=== PATIENT | female | born 2000 | race Caucasian/White ===

== ENCOUNTER 2019-04-30 20:58 | Observation (INO) ==
[2019-05-01 00:52] LABS: White Blood Count 9.7 K/mcL (4.3-11.1)
[2019-05-01 00:53] LABS: Basophils % 0.2 %; Eosinophils # 0.1 K/mcL (0.0-0.6); Eosinophils % 0.7 %; Hematocrit 39.9 % (35.3-44.9); Hemoglobin 13.5 g/dL (11.5-15.4); Immature Granulocytes % 0.3 % (0-4); Lymphocytes # 2.6 K/mcL (0.6-4.6); Lymphocytes % 26.6 %; Mean Corpuscular HGB Conc 33.8 g/dL (31.6-35.5); Mean Corpuscular Hemoglobin 28.8 pg (28.0-33.3); Mean Corpuscular Volume 85.3 fL (83.0-100.0); Mean Platelet Volume 10.8 fL (9.4-12.4); Monocytes # 0.7 K/mcL (0.0-1.3); Monocytes % 7.2 %; Neutrophils # 6.3 K/mcL (1.6-8.9); Platelet Count 256 K/mcL (140-400); Red Blood Count 4.68 M/mcL (3.82-4.97); Red Cell Distribution Width 13.2 % (11.5-14.5)
--- NOTE | 2019-05-01 00:58 | Emergency Department Note ---
Disposition Clinical Impression: Passive suicidal ideations Urinary tract infection Qualifiers: Urinary tract infection type: acute cystitis Hematuria presence: without hematuria Qualified Code(s): N30.00 - Acute cystitis without hematuria Disposition: Admitted As Inpatient Condition: Fair Instructions: Suicide Prevention for Children and Adolescents (ED) Reasons to Return/Additional Instructions: Please follow-up with your outpatient psychiatrist for further evaluation and continue with your prescribed medications Should you develop any further thoughts of harming herself or others please seek help immediately in the emergency department If you have thoughts of injury, you can also contact [employer] Suicide Prevention Lifeline, Call , This is available 24 hours everyday Referrals: [facility] [Outside] Forms: ED Satisfaction Letter Time of Disposition: 07:01 General Adult HPI - General Chief complaint: ED Psychiatric Symptoms Stated complaint: SI Time Seen by Provider: 04/30/19 23:38 Source: patient, family Limitations: no limitations Nursing Notes Reviewed: Yes Vital Signs Reviewed: Yes - History of Present Illness HPI Narrative: 18-year-old female with no prior medical history presents emergency Department with complaints of suicidal ideation. The patient states she has had several stressors in her life recently including recent breakup. Today she was making a noose with a piece of rope and while she did not intend to commit suicide she did have thoughts of hurting herself. She did also cut herself superficially approximately one month ago. The patient does take Lexapro for depression. She has had no previous psychiatric inpatient hospitalizations. Patient denies any homicidal ideation. She denies any somatic complaints at this time that she does note intermittent abdominal pain which she is not currently experiencing. The patient denies any alcohol or drug ingestion. Pain Scale: 5 - Related Data Previous Rx's Medication Instructions Recorded Amoxicillin 875 mg PO BID #20 tablet 11/19/15 Benzonatate [Tessalon] 200 mg PO TID PRN #20 capsule 11/19/15 Cetirizine HCl [Zyrtec] 10 mg PO DAILY 4 Days tab.chew 11/19/15 Fluticasone Propionate Nasal 2 spray NS DAILY 7 Days bottle 11/19/15 [Flonase] Allergies Allergy/AdvReac Type Severity Reaction Status Date / Time No Known Allergies Allergy Verified 11/19/15 20:09 Review of Systems: ROS per history of present illness, all other systems reviewed and negative or normal. All systems ED: reviewed and negative except as stated. Review of Systems: As Per HPI Past Medical History - Past Medical History Medical history: Reports: no medical history - Social History Smoking Status: Never smoker Smokeless Tobacco Status: No Alcohol use: Reports: none Drug use: Reports: none Physical Exam General: Conversant. No apparent distress. Follow commands. Appears stated age. Neck: No JVD. Trachea midline. Neck supple. Eyes: PERRL. No scleral icterus. HENT: Normocephalic and atraumatic. Moist mucus membranes. Cardiovascular: Regular rate and rhythm. Normal S1 and S2. No murmurs appreciated. Normal capillary refill. Extremities well perfused with 2+ distal pulses bilaterally. No edema. Pulmonary: Normal and equal breath sounds bilaterally, anteriorly and posteriorly. Not in respiratory distress. Speaks in full sentences. Abdomen: Soft, nondistended, and tontender. No bruits or masses. No guarding. Neuro: Alert and oriented x3. No slurred speech. No focal deficits noted. Skin: No rashes or cuts to noted on visualized skin. Musculoskeletal: No bony abnormalities visualized. Moves all extremities. Psych: Normal mood. Makes appropriate eye contact. Admits to suicidal ideation. Denies plan. Denies homicidal ideation. - General Limitations: no limitations General appearance: alert, in no apparent distress Course - Consultations Consultation #1: Patient has been evaluated by [facility]. Pending their recommendations. Time: 05:09 Consultation #2: [facility] has discussed case with psychiatrist who believes the patient to be stable for discharge. She is to follow up with her psychiatrist as an outpatient. She understands she is to return to the emergency department or seek help should she develop any further thoughts of self-injury. Time: 06:32 Vital Signs Temperature 99.4 F 04/30/19 21:09 Pulse Rate 73 04/30/19 21:09 Respiratory Rate 18 04/30/19 21:09 Blood Pressure 161/103 04/30/19 21:09 O2 Sat by Pulse Oximetry 97 04/30/19 21:09 Temperature 99.4 F 04/30/19 21:09 Pulse Rate 73 04/30/19 21:09 Respiratory Rate 18 04/30/19 21:09 Blood Pressure 161/103 04/30/19 21:09 O2 Sat by Pulse Oximetry 97 04/30/19 21:09 Oxygen Delivery Oxygen Delivery Room Air Medical Decision Making - MDM Narrative Medical decision making narrative: 18-year-old female who presents the emergency department with complaints of passive suicidal ideation. She states she was playing with a rope and made a noose. She has not had any self injury, attempts or true plan for suicide. Patient complains of no somatic complaints at this time. She has never been hospitalized for her depression and she continues on Lexapro as an outpatient. The patient is well-appearing here and denies any ingestion. No somatic complaints. Labs were obtained prior to psychiatric clearance. She does have a urinary tract infection, macrobid 199mg BID ordered to be completed for 5 days total. She was medically cleared and evaluated by [facility] who deemed her stable for discharge home with the patient wishes to admit herself voluntarily for inpatient psychiatric management. Psychiatrist agrees with plan for admission and accepts the patient to their service. Patient agrees with and understands course of treatment plan including plan for admission. All questions answered. - Medical Records Medical records reviewed: Yes I reviewed the patient's medical records. - Lab Data Lab results reviewed: Yes I reviewed the patient's lab results. Result diagrams: 05/01/19 00:02 05/01/19 00:02 Lab Results 04/30/19 04/30/19 04/30/19 Range/Units 21:51 21:51 21:51 WBC (4.3-11.1) K/mcL RBC (3.82-4.97) M/mcL Hgb (11.5-15.4) g/dL Hct (35.3-44.9) % MCV (83.0-100.0) fL MCH (28.0-33.3) pg MCHC (31.6-35.5) g/dL RDW (11.5-14.5) % Plt Count (140-400) K/mcL MPV (9.4-12.4) fL Immature Gran % (0-4) % Seg Neutrophils % % Lymphocytes % % Monocytes % % Eosinophils % % Basophils % % Neutrophils # (1.6-8.9) K/mcL Lymphocytes # (0.6-4.6) K/mcL Monocytes # (0.0-1.3) K/mcL Eosinophils # (0.0-0.6) K/mcL Basophils # (0.0-0.2) K/mcL Sodium (136-145) mEq/L Potassium (3.5-5.1) mEq/L Chloride (98-107) mEq/L Carbon Dioxide (23-29) mEq/L BUN (6-20) mg/dL Creatinine (0.60-1.20) mg/dL Est GFR ( Amer) Est GFR (Non-Af Amer) BUN/Creatinine Ratio (6-26) Glucose (70-105) mg/dL Calculated Osmolality (280-300) Calcium (8.6-10.3) mg/dL Urine Color Yellow (Yellow) Urine Clarity Cloudy A (Clear) Urine pH 6.5 (5.0-8.0) pH Units Ur Specific [place] 1.021 (1.010-1.025) Urine Protein Negative (Neg-Trace) mg/dL Urine Glucose (UA) Normal (Normal) mg/dL Urine Ketones Negative (Negative) mg/dL Urine Blood Moderate H (Negative) Urine Nitrite Negative (Negative) Urine Bilirubin Negative (Negative) Urine Urobilinogen Normal (Normal) mg/dL Ur Leukocyte Esterase Moderate H (Negative) Urine Microscopic RBC 5-15 H (0-3) per hpf Urine Microscopic WBC 15-30 H (0-3) per hpf Ur Squamous Epith Cells Many H (None-Few) per lpf Urine Bacteria Moderate H (None-Few) per hpf Urine Test Negative (Negative) Salicylates (15.0-30.0) mg/dL Urine Opiates Screen Negative (Lmhgtt=293) ng/mL Acetaminophen (10-20) mcg/mL Ur Barbiturates Screen Negative (Efrqmv=005) ng/mL Ur Phencyclidine Scrn Negative (Cutoff=25) ng/mL Ur Amphetamines Screen Negative (Xethsi=9949) ng/mL U Benzodiazepines Scrn Negative (Xphems=254) ng/mL Urine Cocaine Screen Negative (Cutoff= 300) ng/mL U Marijuana (THC) Screen Negative (Cutoff = 50) ng/mL Ur Drug Screen Interp See Below Ethyl Alcohol (Less than 10) mg/dL 05/01/19 05/01/19 Range/Units 00:02 00:02 WBC 9.7 (4.3-11.1) K/mcL RBC 4.68 (3.82-4.97) M/mcL Hgb 13.5 (11.5-15.4) g/dL Hct 39.9 (35.3-44.9) % MCV 85.3 (83.0-100.0) fL MCH 28.8 (28.0-33.3) pg MCHC 33.8 (31.6-35.5) g/dL RDW 13.2 (11.5-14.5) % Plt Count 256 (140-400) K/mcL MPV 10.8 (9.4-12.4) fL Immature Gran % 0.3 (0-4) % Seg Neutrophils % 65.0 % Lymphocytes % 26.6 % Monocytes % 7.2 % Eosinophils % 0.7 % Basophils % 0.2 % Neutrophils # 6.3 (1.6-8.9) K/mcL Lymphocytes # 2.6 (0.6-4.6) K/mcL Monocytes # 0.7 (0.0-1.3) K/mcL Eosinophils # 0.1 (0.0-0.6) K/mcL Basophils # 0.0 (0.0-0.2) K/mcL Sodium 141 (136-145) mEq/L Potassium 3.8 (3.5-5.1) mEq/L Chloride 108 H (98-107) mEq/L Carbon Dioxide 24 (23-29) mEq/L BUN 12 (6-20) mg/dL Creatinine 0.81 (0.60-1.20) mg/dL Est GFR ( Amer) > 60 Est GFR (Non-Af Amer) > 60 BUN/Creatinine Ratio 15 (6-26) Glucose 91 (70-105) mg/dL Calculated Osmolality 291 (280-300) Calcium 9.5 (8.6-10.3) mg/dL Urine Color (Yellow) Urine Clarity (Clear) Urine pH (5.0-8.0) pH Units Ur Specific [place] (1.010-1.025) Urine Protein (Neg-Trace) mg/dL Urine Glucose (UA) (Normal) mg/dL Urine Ketones (Negative) mg/dL Urine Blood (Negative) Urine Nitrite (Negative) Urine Bilirubin (Negative) Urine Urobilinogen (Normal) mg/dL Ur Leukocyte Esterase (Negative) Urine Microscopic RBC (0-3) per hpf Urine Microscopic WBC (0-3) per hpf Ur Squamous Epith Cells (None-Few) per lpf Urine Bacteria (None-Few) per hpf Urine Test (Negative) Salicylates < 2.5 L (15.0-30.0) mg/dL Urine Opiates Screen (Ygtnsw=105) ng/mL Acetaminophen < 10 L (10-20) mcg/mL Ur Barbiturates Screen (Tctsyr=526) ng/mL Ur Phencyclidine Scrn (Cutoff=25) ng/mL Ur Amphetamines Screen (Jajsna=5115) ng/mL U Benzodiazepines Scrn (Aulhlq=629) ng/mL Urine Cocaine Screen (Cutoff= 300) ng/mL U Marijuana (THC) Screen (Cutoff = 50) ng/mL Ur Drug Screen Interp Ethyl Alcohol < 10 (Less than 10) mg/dL
[2019-05-01 01:03] LABS: Acetaminophen < 10 mcg/mL (10-20); BUN/Creatinine Ratio 15 (6-26); Blood Urea Nitrogen 12 mg/dL (6-20); Calcium 9.5 mg/dL (8.6-10.3); Carbon Dioxide 24 mEq/L (23-29); Chloride 108 mEq/L (98-107); Ethanol < 10 mg/dL (Less than 10); Glucose 91 mg/dL (70-105); Osmolality,Calculated 291 (280-300); Potassium 3.8 mEq/L (3.5-5.1); Salicylate < 2.5 mg/dL (15.0-30.0); Sodium 141 mEq/L (136-145); eGFR For African Americans > 60; eGFR For Non-African Americans > 60
[2019-05-01 01:24] LABS: Bilirubin,Urine Negative (Negative); Blood,Urine Moderate (Negative); Clarity,Urine Cloudy (Clear); Color,Urine Yellow (Yellow); Glucose,Urine (UA) Normal (Normal); Ketones,Urine Negative (Negative); Leukocyte Esterase,Urine Moderate (Negative); Nitrite,Urine Negative (Negative); PH,Urine 6.5 pH Units (5.0-8.0); Protein,Urine Negative (Neg-Trace); Specific Gravity,Urine 1.021 (1.010-1.025); Urobilinogen,Urine Normal (Normal)
[2019-05-01 01:26] LABS: Amphetamine Screen,Urine Negative ng/mL (Cutoff=1000); Barbiturate Screen,Urine Negative ng/mL (Cutoff=200); Benzodiazepines Screen,Urine Negative ng/mL (Cutoff=200); Cannabinoid Screen,Urine Negative ng/mL (Cutoff = 50); Cocaine Screen,Urine Negative ng/mL (Cutoff= 300); Opiate Screen,Urine Negative ng/mL (Cutoff=300); Phencyclidine Screen,Urine Negative ng/mL (Cutoff=25)
[2019-05-01 01:27] LABS: Bacteria,Urine Moderate per hpf (None-Few); Squamous Epithelial Cell,Urine Many per lpf (None-Few); WBC,Urine 15-30 per hpf (0-3)
--- NOTE | 2019-05-01 06:40 | Emergency Department Note ---
Disposition Clinical Impression: Passive suicidal ideations Disposition: Home, Self-Care Condition: Fair Instructions: Suicide Prevention for Children and Adolescents (ED) Reasons to Return/Additional Instructions: Please follow-up with your outpatient psychiatrist for further evaluation and continue with your prescribed medications Should you develop any further thoughts of harming herself or others please seek help immediately in the emergency department If you have thoughts of injury, you can also contact [employer] Suicide Prevention Lifeline, Call , This is available 24 hours everyday Referrals: [facility] [Outside] Forms: ED Satisfaction Letter Time of Disposition: 06:30 General Adult HPI - General Chief complaint: ED Psychiatric Symptoms Stated complaint: SI Time Seen by Provider: 04/30/19 23:38 Source: patient, family Limitations: no limitations Nursing Notes Reviewed: Yes Vital Signs Reviewed: Yes - History of Present Illness Pain Scale: 5 - Related Data Previous Rx's Medication Instructions Recorded Amoxicillin 875 mg PO BID #20 tablet 11/19/15 Benzonatate [Tessalon] 200 mg PO TID PRN #20 capsule 11/19/15 Cetirizine HCl [Zyrtec] 10 mg PO DAILY 4 Days tab.chew 11/19/15 Fluticasone Propionate Nasal 2 spray NS DAILY 7 Days bottle 11/19/15 [Flonase] Allergies Allergy/AdvReac Type Severity Reaction Status Date / Time No Known Allergies Allergy Verified 11/19/15 20:09 Past Medical History - Past Medical History Medical history: Reports: no medical history - Social History Smoking Status: Never smoker Smokeless Tobacco Status: No Alcohol use: Reports: none Drug use: Reports: none Physical Exam - General Limitations: no limitations General appearance: alert, in no apparent distress Course Vital Signs Temperature 99.4 F 04/30/19 21:09 Pulse Rate 73 04/30/19 21:09 Respiratory Rate 18 04/30/19 21:09 Blood Pressure 161/103 04/30/19 21:09 O2 Sat by Pulse Oximetry 97 04/30/19 21:09 Temperature 99.4 F 04/30/19 21:09 Pulse Rate 73 04/30/19 21:09 Respiratory Rate 18 04/30/19 21:09 Blood Pressure 161/103 04/30/19 21:09 O2 Sat by Pulse Oximetry 97 04/30/19 21:09 Oxygen Delivery Oxygen Delivery Room Air Medical Decision Making - Lab Data Lab results reviewed: Yes I reviewed the patient's lab results. Result diagrams: 05/01/19 00:02 05/01/19 00:02 Lab Results 04/30/19 04/30/19 04/30/19 Range/Units 21:51 21:51 21:51 WBC (4.3-11.1) K/mcL RBC (3.82-4.97) M/mcL Hgb (11.5-15.4) g/dL Hct (35.3-44.9) % MCV (83.0-100.0) fL MCH (28.0-33.3) pg MCHC (31.6-35.5) g/dL RDW (11.5-14.5) % Plt Count (140-400) K/mcL MPV (9.4-12.4) fL Immature Gran % (0-4) % Seg Neutrophils % % Lymphocytes % % Monocytes % % Eosinophils % % Basophils % % Neutrophils # (1.6-8.9) K/mcL Lymphocytes # (0.6-4.6) K/mcL Monocytes # (0.0-1.3) K/mcL Eosinophils # (0.0-0.6) K/mcL Basophils # (0.0-0.2) K/mcL Sodium (136-145) mEq/L Potassium (3.5-5.1) mEq/L Chloride (98-107) mEq/L Carbon Dioxide (23-29) mEq/L BUN (6-20) mg/dL Creatinine (0.60-1.20) mg/dL Est GFR ( Amer) Est GFR (Non-Af Amer) BUN/Creatinine Ratio (6-26) Glucose (70-105) mg/dL Calculated Osmolality (280-300) Calcium (8.6-10.3) mg/dL Urine Color Yellow (Yellow) Urine Clarity Cloudy A (Clear) Urine pH 6.5 (5.0-8.0) pH Units Ur Specific [place] 1.021 (1.010-1.025) Urine Protein Negative (Neg-Trace) mg/dL Urine Glucose (UA) Normal (Normal) mg/dL Urine Ketones Negative (Negative) mg/dL Urine Blood Moderate H (Negative) Urine Nitrite Negative (Negative) Urine Bilirubin Negative (Negative) Urine Urobilinogen Normal (Normal) mg/dL Ur Leukocyte Esterase Moderate H (Negative) Urine Microscopic RBC 5-15 H (0-3) per hpf Urine Microscopic WBC 15-30 H (0-3) per hpf Ur Squamous Epith Cells Many H (None-Few) per lpf Urine Bacteria Moderate H (None-Few) per hpf Urine Test Negative (Negative) Salicylates (15.0-30.0) mg/dL Urine Opiates Screen Negative (Mbhdyz=580) ng/mL Acetaminophen (10-20) mcg/mL Ur Barbiturates Screen Negative (Tlkmoa=986) ng/mL Ur Phencyclidine Scrn Negative (Cutoff=25) ng/mL Ur Amphetamines Screen Negative (Nladkf=0398) ng/mL U Benzodiazepines Scrn Negative (Snmqiz=423) ng/mL Urine Cocaine Screen Negative (Cutoff= 300) ng/mL U Marijuana (THC) Screen Negative (Cutoff = 50) ng/mL Ur Drug Screen Interp See Below Ethyl Alcohol (Less than 10) mg/dL 05/01/19 05/01/19 Range/Units 00:02 00:02 WBC 9.7 (4.3-11.1) K/mcL RBC 4.68 (3.82-4.97) M/mcL Hgb 13.5 (11.5-15.4) g/dL Hct 39.9 (35.3-44.9) % MCV 85.3 (83.0-100.0) fL MCH 28.8 (28.0-33.3) pg MCHC 33.8 (31.6-35.5) g/dL RDW 13.2 (11.5-14.5) % Plt Count 256 (140-400) K/mcL MPV 10.8 (9.4-12.4) fL Immature Gran % 0.3 (0-4) % Seg Neutrophils % 65.0 % Lymphocytes % 26.6 % Monocytes % 7.2 % Eosinophils % 0.7 % Basophils % 0.2 % Neutrophils # 6.3 (1.6-8.9) K/mcL Lymphocytes # 2.6 (0.6-4.6) K/mcL Monocytes # 0.7 (0.0-1.3) K/mcL Eosinophils # 0.1 (0.0-0.6) K/mcL Basophils # 0.0 (0.0-0.2) K/mcL Sodium 141 (136-145) mEq/L Potassium 3.8 (3.5-5.1) mEq/L Chloride 108 H (98-107) mEq/L Carbon Dioxide 24 (23-29) mEq/L BUN 12 (6-20) mg/dL Creatinine 0.81 (0.60-1.20) mg/dL Est GFR ( Amer) > 60 Est GFR (Non-Af Amer) > 60 BUN/Creatinine Ratio 15 (6-26) Glucose 91 (70-105) mg/dL Calculated Osmolality 291 (280-300) Calcium 9.5 (8.6-10.3) mg/dL Urine Color (Yellow) Urine Clarity (Clear) Urine pH (5.0-8.0) pH Units Ur Specific [place] (1.010-1.025) Urine Protein (Neg-Trace) mg/dL Urine Glucose (UA) (Normal) mg/dL Urine Ketones (Negative) mg/dL Urine Blood (Negative) Urine Nitrite (Negative) Urine Bilirubin (Negative) Urine Urobilinogen (Normal) mg/dL Ur Leukocyte Esterase (Negative) Urine Microscopic RBC (0-3) per hpf Urine Microscopic WBC (0-3) per hpf Ur Squamous Epith Cells (None-Few) per lpf Urine Bacteria (None-Few) per hpf Urine Test (Negative) Salicylates < 2.5 L (15.0-30.0) mg/dL Urine Opiates Screen (Ulakej=424) ng/mL Acetaminophen < 10 L (10-20) mcg/mL Ur Barbiturates Screen (Xiknre=974) ng/mL Ur Phencyclidine Scrn (Cutoff=25) ng/mL Ur Amphetamines Screen (Siqbke=2133) ng/mL U Benzodiazepines Scrn (Zgrvnk=679) ng/mL Urine Cocaine Screen (Cutoff= 300) ng/mL U Marijuana (THC) Screen (Cutoff = 50) ng/mL Ur Drug Screen Interp Ethyl Alcohol < 10 (Less than 10) mg/dL Attestation Statement - Attestation Attestation: I, Priyank Corrales MD, personally evaluated this patient and discussed their management with the resident physician. I reviewed the resident's note and agree with the documented findings, medical decision making, and plan of care. 18-year-old female persisted emergency department for complaint of suicidal ideations. Patient states that she had a breakup and was upset. She was playing with a piece of small rope and made it into a noose. She said she had no intention of using the noose or harming herself. She states she has had some vague suicidal ideations intermittently for the past few months but no actual plan and does not feel she would act on this. She does admit to cutting herself about a month ago. On examination patient is a well-developed obese young female in no acute distress. She is alert and oriented 3. There is no cyanosis or diaphoresis. Breath sounds are clear and equal bilaterally. Heart regular rate and rhythm. Abdomen soft and nontender with normal bowel sounds. Labs reviewed and unremarkable. Patient medically cleared for psychiatric evaluation. [address] psychiatry department was consulted and evaluated patient in the emergency department. After evaluation patient was cleared to be discharged home with outpatient follow-up.
[2019-05-01] MEDS ORDERED: MOM Conc 10 ML UD.LIQ PO PRN (08:09)
[2019-05-01] MEDS ORDERED: traZODone 50 MG TABLET PO PRN (08:09)
[2019-05-01] MEDS ORDERED: *HR* LORazepam 2 MG/ML VIAL IM PRN (08:09)
[2019-05-01] MEDS ORDERED: Ibuprofen 400 MG TABLET PO PRN (08:09)
[2019-05-01] MEDS ORDERED: hydrOXYzine pamoate 25 MG CAPSULE PO PRN (08:09)
[2019-05-01] MEDS ORDERED: *HR* LORazepam 1 MG TABLET PO PRN (08:09)
[2019-05-01] MEDS ORDERED: Mag Hydrox/Al Hydrox/Simeth 30 ML UDC PO PRN (08:09)
[2019-05-01] MEDS ORDERED: Haloperidol Lactate 5 MG/ML VIAL IM PRN (08:09)
[2019-05-01] MEDS: Nitrofurantoin (BID) 100 MG CAPSULE PO SCH ×2 (08:25→17:25)
[2019-05-01 09:20] VITALS: BP 139/91
--- NOTE | 2019-05-01 16:59 | Discharge Summary ---
Date of Encounter: 05/01/19 Time of Encounter: 16:40 History of Present Illness Chief complaint: "My family is worried about me, but I'm fine." Admitted From: Emergency Dept History of Present Illness: Ms. Acevedo is a 18 year old female Past Med Surg Social Fam HX - Past Medical History Medical history: other - Past Surgical History Surgical History: cholecystectomy - Social History Smoking Status: Never smoker Smokeless Tobacco Status: No Alcohol use: none Drug use: none Medications - Discharge Medications Escitalopram [Lexapro] 20 mg PO DAILY 05/01/19 [History] Fluticasone Propionate Nasal [Flonase] 1 spray NS DAILY PRN 05/01/19 [History] Nitrofurantoin (BID) [Macrobid] 100 mg PO BIDWM capsule 05/01/19 [Rx] Allergy/AdvReac Type Severity Reaction Status Date / Time No Known Allergies Allergy Verified 05/01/19 14:07 Review of Systems Psychiatric: Reports: depression, anxiety Exam - Constitutional Vitals: Temp Pulse Resp BP Pulse Ox 97.9 F 73 18 139/91 98 05/01/19 09:00 05/01/19 09:00 05/01/19 09:00 05/01/19 09:00 05/01/19 09:00 Results - Drug Levels and Toxicology Drug Levels and Toxicology: Drug Levels and Toxicity 04/30/19 05/01/19 21:51 00:02 Urine Opiates Screen Negative Acetaminophen < 10 L Ur Barbiturates Screen Negative Ur Phencyclidine Scrn Negative Ur Amphetamines Screen Negative U Benzodiazepines Scrn Negative Urine Cocaine Screen Negative U Marijuana (THC) Screen Negative Ethyl Alcohol < 10 - Labs Labs: Laboratory Last Values WBC 9.7 K/mcL (4.3-11.1) 05/01/19 00:02 RBC 4.68 M/mcL (3.82-4.97) 05/01/19 00:02 Hgb 13.5 g/dL (11.5-15.4) 05/01/19 00:02 Hct 39.9 % (35.3-44.9) 05/01/19 00:02 MCV 85.3 fL (83.0-100.0) 05/01/19 00:02 MCH 28.8 pg (28.0-33.3) 05/01/19 00:02 MCHC 33.8 g/dL (31.6-35.5) 05/01/19 00:02 RDW 13.2 % (11.5-14.5) 05/01/19 00:02 Plt Count 256 K/mcL (140-400) 05/01/19 00:02 MPV 10.8 fL (9.4-12.4) 05/01/19 00:02 Immature Gran % 0.3 % (0-4) 05/01/19 00:02 Seg Neutrophils % 65.0 % 05/01/19 00:02 26.6 % 05/01/19 00:02 7.2 % 05/01/19 00:02 0.7 % 05/01/19 00:02 0.2 % 05/01/19 00:02 6.3 K/mcL (1.6-8.9) 05/01/19 00:02 2.6 K/mcL (0.6-4.6) 05/01/19 00:02 0.7 K/mcL (0.0-1.3) 05/01/19 00:02 0.1 K/mcL (0.0-0.6) 05/01/19 00:02 0.0 K/mcL (0.0-0.2) 05/01/19 00:02 Sodium 141 mEq/L (136-145) 05/01/19 00:02 Potassium 3.8 mEq/L (3.5-5.1) 05/01/19 00:02 Chloride 108 mEq/L (98-107) H 05/01/19 00:02 Carbon Dioxide 24 mEq/L (23-29) 05/01/19 00:02 BUN 12 mg/dL (6-20) 05/01/19 00:02 0.81 mg/dL (0.60-1.20) 05/01/19 00:02 Est GFR ( Amer) > 60 05/01/19 00:02 Est GFR (Non-Af Amer) > 60 05/01/19 00:02 15 (6-26) 05/01/19 00:02 Glucose 91 mg/dL (70-105) 05/01/19 00:02 291 (280-300) 05/01/19 00:02 Calcium 9.5 mg/dL (8.6-10.3) 05/01/19 00:02 Yellow (Yellow) 04/30/19 21:51 Cloudy (Clear) A 04/30/19 21:51 6.5 pH Units (5.0-8.0) 04/30/19 21:51 Ur Specific [place] 1.021 (1.010-1.025) 04/30/19 21:51 Negative mg/dL (Neg-Trace) 04/30/19 21:51 Normal mg/dL (Normal) 04/30/19 21:51 Negative mg/dL (Negative) 04/30/19 21:51 Moderate (Negative) H 04/30/19 21:51 Negative (Negative) 04/30/19 21:51 Negative (Negative) 04/30/19 21:51 Normal mg/dL (Normal) 04/30/19 21:51 Ur Leukocyte Esterase Moderate (Negative) H 04/30/19 21:51 5-15 per hpf (0-3) H 04/30/19 21:51 15-30 per hpf (0-3) H 04/30/19 21:51 Ur Squamous Epith Cells Many per lpf (None-Few) H 04/30/19 21:51 Moderate per hpf (None-Few) H 04/30/19 21:51 Negative (Negative) 04/30/19 21:51 Salicylates < 2.5 mg/dL (15.0-30.0) L 05/01/19 00:02 Negative ng/mL (Yzgvcz=840) 04/30/19 21:51 Acetaminophen < 10 mcg/mL (10-20) L 05/01/19 00:02 Ur Barbiturates Screen Negative ng/mL (Szjicf=742) 04/30/19 21:51 Ur Phencyclidine Scrn Negative ng/mL (Cutoff=25) 04/30/19 21:51 Ur Amphetamines Screen Negative ng/mL (Yowsih=6674) 04/30/19 21:51 U Benzodiazepines Scrn Negative ng/mL (Ugwhdh=435) 04/30/19 21:51 Negative ng/mL (Cutoff= 300) 04/30/19 21:51 U Marijuana (THC) Screen Negative ng/mL (Cutoff = 50) 04/30/19 21:51 Ur Drug Screen Interp See Below 04/30/19 21:51 Ethyl Alcohol < 10 mg/dL (Less than 10) 05/01/19 00:02 Diagnosis - Discharge Diagnosis (1) Depression Status: Acute Qualifiers: Depression Type: reactive depression Qualified Code(s): F32.9 - Major depressive disorder, single episode, unspecified Assessment and Plan - Patient/Caregiver Discharge Instructions Activity: resume usual activities as tolerated Diet: regular diet - Follow up Plan Follow up with: [facility] [Outside] - 05/18/19 10:00 am (You have an appointment scheduled on Saturday, May 18, 2019 at 10:00 AM with MARVA Sheppard for Counseling. You have an appointment scheduled for Wednesday, July 10, 2019 at 8:[address] Rogers for medication management. Please contact the office at least 24 hours in advance if you are unable to keep your appointment(s). ) Functional capacity at discharge: independent ambulation Overall status at discharge: Stable Disposition: Home, Self-Care Provider Date of admission: 05/01/19 07:34 Primary care physician: PCP NONE Hospital Course Hospital course: Ms. Acevedo is a 18 year old female Does patient wish to continue nicotine replacement upon disc: No (na) - Time Spent with Patient Total time spent providing and/or coordinating discharge services: 25 min Less than 30 minutes Procedures - Procedures Procedures: Crisis Stabilization, Supportive Therapy Quality - Multiple Antipsychotics Patient discharged on 2 or more antipsychotic medications: No
== END 2019-05-01 17:48 | disposition home or self-care (01) ==
LOC: EMEROOARM 20:58 → 1ANU 20:58
PROVIDERS: ADMIT Psychiatry & Neurology Psychiatry; ATTEND Psychiatry & Neurology Psychiatry